=== PATIENT | female | born 1950 | race Two or more races ===

== ENCOUNTER 2019-03-01 06:40 | Day surgery (SDC) | payer OTHER ==
[~2019-03-01 06:40] MED LIST: ALIVE WOMEN'S1 EACH PO; ECOTRIN81 MG PO; VITAMIN D1000 UNIT PO; VOLTAREN100 GM TOP
== END 2019-03-01 16:40 | disposition home or self-care (01) ==
LOC: CIR.AMB 06:40 → ADM 10:45 → CIR.AMB 10:45
DX: N84.0 Polyp of corpus uteri (principal)